=== PATIENT | female | born 1985 | race Hispanic/Latino ===

== ENCOUNTER 2022-12-28 22:50 | Emergency (ER) | payer BC ==
[2022-12-28] MEDS ORDERED: Boostrix 0.5 ML (Tdap) VIAL (>/=7 yrs of age) ONE (23:05)
[2022-12-28] MEDS ORDERED: Lidocaine 1% w/Epinephrine 1:100K 20 ML VIAL ONE (23:05)
[2022-12-28] MEDS ORDERED: Clindamycin 150 MG CAP ONE ×2 (23:26→23:27)
== END 2022-12-28 23:30 | disposition home or self-care (01) ==
LOC: MADERS 22:50
DX: N76.4 Abscess of vulva (principal)
CPT/HCPCS: 56405; 87070; 87077; 87205; 90471; 90715